=== PATIENT | male | born 1945 | race Asian ===

== ENCOUNTER 2016-11-15 13:46 | Outpatient (CLI) | payer OTHER, BC ==
[~2016-11-15 13:46] MED LIST: ASA LOW DOSE81 MG OR; CLONIDINE0.3 MG PO; EXFORGE1 TA2 PO; GLIP5TAB65 PO; METFORMIN ER1000 MG PO; METO100T37 PO; MICARDIS80 MG PO; VIAGRA100 MG OR
[2016-11-15 14:43] LABS: PLATELET COUNT 249 K/uL (142-355)
== END 2016-11-15 19:10 | disposition home or self-care (01) ==
LOC: LAB 13:46
PROVIDERS: Nurse Practitioner Family
DX: E11.9 Type 2 diabetes mellitus without complications (principal); I10 Essential (primary) hypertension; R39.12 Poor urinary stream
CPT/HCPCS: 83036; 85027